=== PATIENT | female | born 1990 | race Caucasian/White ===

== ENCOUNTER 2019-10-02 18:38 | Observation (INO) | payer SELFPAY ==
[2019-10-02] VITALS (11 sets, daily range): BP systolic 100–151; BP diastolic 57–86; PULSE 84–110; RESP 16–23; TEMP 36.2–37; O2SAT 91–95; BMI 43.2; BMI 43.3; BMI 41.9
--- NOTE | 2019-10-02 02:12 | NURSING ---
Pt states she has never had flu or pneumonia shot.
[2019-10-02] MEDS: 0.9% Normal Saline 1,000 ML 125 ML IV ×3 (03:54→18:15)
[2019-10-02 07:31] LABS: Mucous, Urine 0 SEEN /hpf (<or=2+); Red Blood Cells-Urine 0 SEEN /hpf (0-5)
[2019-10-02 07:33] LABS: Color, Urine Yellow (Yellow); Glucose, Dipstick Normal (Normal); Ketone-Dipstick 15 mg/dl (Negative); Leukocyte Esterase-Dipstick 500 /ul (Negative); Nitrite-Dipstick Positive (Negative); Occult Blood-Urine 250 /ul (Negative); Protein-Dipstick 30 mg/dl (Negative); Specific Gravity, Urine 1.015 (1.002-1.030); Urine Bilirubin Dipstick Negative (Negative); Urine Clarity Sl. Cloudy (Clear); Urine Urobilinogen Normal (Normal)
[2019-10-02 07:42] LABS: Bacteria 1+ /hpf (None Seen); Squamous Epithelial Cells - UA 0-5 SEEN /hpf (5-10); White Blood Cells >100 SEEN /hpf (0-5)
[2019-10-02 07:43] LABS: Internal QC Validated? YES +Cl - CLEAR BKGD; Pregnancy, Urine Negative Negative
[2019-10-02 07:46] LABS: Absolute Lymphocyte Count 1.53 X10^3/uL (0.83-4.51); Absolute Neutrophil Count 14.1 X10^3/uL (2.0-7.7); Basophil# 0.06 X10^3/uL; Basophil% 0.4 % (0-1); Eosinophil# 0.08 X10^3/uL; Eosinophils% 0.5 % (0-5); Hematocrit 38.4 % (37-47); Hemoglobin 12.5 g/dL (12.0-15.0); Lymphocyte # 1.53 X10^3/ul (4.0); Mean Corp Hgb Conc 32.6 g/dL (32-36); Mean Corpuscular Volume 95.3 fL (81-99); Mean Platelet Vol. 9.2 fl (6.2-12.0); Monocyte% 6.5 % (0-10); NRBC Flagged by Analyzer 0 % (0-5); Neutrophil # 14.09 X10^3/uL (2.7-7.7); Platelet Count 139 K/mm3 (150-450); RBC Distribution Width CV 13.1 % (11.6-14.6); RBC Distribution Width SD 45.8 fl (35.1-43.9); Red Blood Count 4.03 M/mm3 (4.2-5.4)
--- NOTE | 2019-10-02 08:14 | HP.PCM_ITS ---
History of Present Illness Date of Admission: 10/02/19 Chief Complaint: Obstructing left ureteral calculus and sepsis. The patient is a 29 year old female presented to an outside emergency room with fevers of 102, tachycardic with a heart rate in the 114's, white blood count was elevated at 17, she had mild renal dysfunction. She had severe left flank pain. I was called and accepted the transfer of the patient to our facility for further care. No prior history of kidney stones. She complains of fevers and chills and flank pain to presentation to the emergency room. 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 Denies: Weight Change HEENT: Denies: Head Aches, Sinus Congestion, Sinus Drainage Cardiovascular: Denies: Chest Pain, Palpitations Respiratory: Denies: Cough, Shortness of breath at rest, Sputum production Gastrointestinal: Denies: Abdominal Pain, Nausea, Vomiting Genitourinary: Denies: Dysuria Musculoskeletal: Denies: Joint Pain, Joint Tenderness Skin: Denies: Rash, Wounds Neurological: Denies: Numbness, Tingling, Focal weakness Psychiatric: Denies: Anxiety, Depression, Homicidal Ideations, Suicidal Ideations Hematologic/ Lymphatic: Denies: Easy Bruising, Easy Bleeding VTE Information - Inpt Only VTE Present on Admission: No VTE Mechan Device Prophylaxis: SCD's - Physical Exam Vitals/I&O's: Vital Signs Temp Pulse Resp BP Pulse Ox 98.3 F 101 H 23 H 100/66 95 10/02/19 02:26 10/02/19 02:26 10/02/19 02:26 10/02/19 02:28 10/02/19 02:26 Oxygen Delivery Method Room Air Weight: 121.6 kg Body Mass Index (BMI) 43.2 Intake and Output for Last 24 Hours 09/30/19 10/01/19 10/02/19 23:59 23:59 23:59 Intake Total Balance General: Alert, Oriented x3, Cooperative HEENT: Atraumatic, PERRLA, EOMI, Normocephalic Neck: Supple, No JVD, Negative Carotid Bruits Lungs: Clear to auscultation, Normal air movement Cardiovascular: Regular rate, No murmurs Abdomen: Bowel Sounds Present, Soft, Non Tender Extremities: No edema, Capillary Refill Less than 3 Seconds Skin: No rashes, No breakdown Musculoskeletal: No Tenderness to Palpation of Joints or Extremities Neurological: Cranial nerves II-XII grossly intact Psych/Mental Status: Normal Affect, Appropriate Laboratory Results 10/02/19 02:47: Urine Color Yellow, Urine Clarity Sl. Cloudy, Urine pH 5.0, Ur Specific [place] 1.015, Urine Protein 30 H, Urine Glucose (UA) Normal, Urine Ketones 15 H, Urine Occult Blood 250 H, Urine Nitrite Positive H, Urine Bilirubin Negative, Urine Urobilinogen Normal, Ur Leukocyte Esterase 500 H, Urine RBC 0 SEEN, Urine WBC >100 SEEN, Ur Squamous Epith Cells 0-5 SEEN, Urine Bacteria 1+, Urine Mucus 0 SEEN, Urine Test Negative 10/02/19 07:34: WBC 17.0 H, RBC 4.03 L, Hgb 12.5, Hct 38.4, MCV 95.3, MCH 31.0, MCHC 32.6, RDW Std Deviation 45.8 H, RDW Coeff of Mundo 13.1, Plt Count 139 L, MPV 9.2, Immature Gran % (Auto) 0.600, Neut % (Auto) 83.0 H, Lymph % (Auto) 9.0 L, [place] % (Auto) 6.5, Eos % (Auto) 0.5, Baso % (Auto) 0.4, Absolute Neuts (auto) 14.1 H, Absolute Lymphs (auto) 1.53, Nucleated RBC % 0 10/02/19 07:34: Sodium Pending, Potassium Pending, Chloride Pending, Carbon Dioxide Pending, Anion Gap Pending, BUN Pending, Creatinine Pending, Est GFR (MDRD) Af Amer Pending, Est GFR (MDRD) Non-Af Pending, BUN/Creatinine Ratio Pending, Glucose Pending, Calcium Pending Current Medications Acetaminophen (Tylenol) 500 mg PO Q4H PRN PRN PRN Reason: HEADACHE/FEVER (T>100F) Sodium Chloride () 250 mls @ 15 mls/hr IV .[id number] PRN PRN Reason: Saline Flush Sodium Chloride () 250 mls @ 15 mls/hr IV .[id number] PRN PRN Reason: Additional IVPB Infusion Sodium Chloride () 1,000 mls @ 125 mls/hr IV .Q8H [place] Last Admin: 10/02/19 03:54 Dose: 125 mls/hr Documented by: Ketorolac Tromethamine (Toradol (Bkc)) 15 mg IV Q6H PRN PRN PRN Reason: Pain Score 1-10/10 Stop: 10/07/19 03:03 Metoclopramide HCl (Reglan) 10 mg IV Q6H PRN PRN PRN Reason: NAUSEA/VOMITING Morphine Sulfate () 2 mg IV Q2H PRN PRN PRN Reason: Pain Score 1-10/10 Ondansetron HCl (Zofran) 4 mg IV Q6H PRN PRN PRN Reason: NAUSEA/VOMITING Sodium Chloride () 10 - 40 ml IV UD PRN PRN Reason: SALINE FLUSH Assessment/Plan 29-year-old female presents with obstructing stone in the distal left ureter with hydronephrosis stranding of the kidney on CAT scan from the outside hospital she had an elevated white count of 17, mild renal dysfunction on creatinine slightly elevated, she presented and was given broad-spectrum antibiotics at the outside emergency room with Rocephin. N.p.o. for surgery. We will take her to surgery today and place a stent on the left side. After the placement of stent the patient is clinically stable we will discharge her home with antibiotics.
--- NOTE | 2019-10-02 08:23 | DCINST_ITS ---
Discharge Diet: Light diet - advance as tolerated Discharge Activity: Return to Normal Activity Call your doctor if your incision/area has: Continuous Slow Oozing, Sudden Increased Bleeding Call your doctor if you observe: Fever of 101 or Higher Instructions: Ureteral Stents, Preventing Kidney Stones Allergies/Adverse Reactions: Allergies amoxicillin Allergy (Verified 10/02/19 02:11) Hives Medications to take at Discharge Ciprofloxacin [Cipro] 500 mg PO BID #14 tab 10/02/19 Hydrocodone/Acetaminophen [[place] 5-325 Tablet] 1 each PO Q4H PRN PRN 5 Days #14 tablet 10/02/19 The following prescriptions were given: Ciprofloxacin [Cipro] 500 mg PO BID #14 tab Transmission Status: Pending to [id number] Hydrocodone/Acetaminophen [[place] 5-325 Tablet] 1 each PO Q4H PRN PRN 5 Days #14 tablet PRN Reason: Pain Score 1-10/10 Transmission Status[facility] Test Results: Test results from this visit will be discussed in further detail at your follow- up appointment, if applicable. Please Follow Up With: James Alarcon MD When: in 1 week, please call to make an appointment.
[2019-10-02 08:32] LABS: Anion Gap 6 (5-15); BUN 19 mg/dL (7-18); BUN/Creat Ratio 16.8 RATIO (10-20); Calcium,Total 8.2 mg/dL (8.5-10.1); Chloride 108 mmol/L (98-107); Creatinine, Serum 1.13 mg/dL (0.55-1.02); EST Glomerular Filtration Rate 61 mL/min (>60); Est Glom Filt Rate - Afr Amer 74 mL/min (>60); Estimated Creatinine Clearance 70.01 ml/min; Glucose 117 mg/dL (74-106); Potassium 3.7 mmol/L (3.5-5.1); Sodium Level 140 mmol/L (136-145)
[2019-10-02] MEDS: Lidocaine Jelly 2% 20 ML Syringe (URO-JET) 20 APPLIC (08:35)
[2019-10-02] MEDS: Lubricating Jelly 60 GM Tube 30 GM TOPICAL (08:35)
--- NOTE | 2019-10-02 08:45 | OP.PCM_ITS ---
Report of Operation Date of Procedure: 10/02/19 Pre-Operative Diagnosis: Left ureteral calculi and sepsis. Post-Operative Diagnosis: Same Surgery/Procedure Performed:: Cystoscopy and left stent placement Description of Surgical Findings:: 29-year-old female taken back to the operating room after smooth induction of anesthesia she was placed in dorsolithotomy position the urethra vaginal area prepped and draped in usual sterile fashion, we infiltrated the urethra with lidocaine jelly, went to the bladder with a 21 [place] rigid cystourethroscope, identified the left ureteral orifice and then cannulated the left ureter orifice with a Glidewire advanced a wire under fluoroscopy could see the stone in the distal ureter on the left side once the wire was in place then over the wire advanced a 6 [place] by 26 cm stent. Once stent was a good position and pulled the wire the stent: The kidney bladder good position I drained the bladder and the patient acetic was reversed should be kept in the hospital because of her infection. Type of Anesthesia:: Local MAC Drains: stent 6 fr x 26 cm - Admit VTE Documentation VTE Present on Admission: No VTE Mechan Device Prophylaxis: SCD's
[2019-10-02] MEDS: Lactated Ringers 1,000 ML 100 ML IV (09:07)
[2019-10-02] MEDS: Ceftriaxone 1 GM/50 ML BAG IV ×2 (11:43→21:41)
[2019-10-03] MEDS: 0.9% Normal Saline 1,000 ML 125 ML IV (02:43)
[2019-10-03 03:39] VITALS: BP 135/80; PULSE 83; RESP 18; TEMP 36.7; O2SAT 97
[2019-10-03 05:18] LABS: Absolute Lymphocyte Count 1.86 X10^3/uL (0.83-4.51); Absolute Neutrophil Count 14.4 X10^3/uL (2.0-7.7); Basophil# 0.04 X10^3/uL; Basophil% 0.2 % (0-1); Eosinophil# 0.04 X10^3/uL; Eosinophils% 0.2 % (0-5); Hematocrit 35.8 % (37-47); Hemoglobin 11.7 g/dL (12.0-15.0); Lymphocyte # 1.86 X10^3/ul (4.0); Lymphocyte % 10.3 % (19-41); Mean Corp Hgb Conc 32.7 g/dL (32-36); Mean Corpuscular Hgb 30.7 pg (27.0-32.0); Mean Platelet Vol. 10.1 fl (6.2-12.0); Monocyte% 7.8 % (0-10); NRBC Flagged by Analyzer 0 % (0-5); Neutrophil # 14.37 X10^3/uL (2.7-7.7); Neutrophil % 79.6 % (47-70); Platelet Count 123 K/mm3 (150-450); RBC Distribution Width CV 12.8 % (11.6-14.6); Red Blood Count 3.81 M/mm3 (4.2-5.4); White Blood Count 18.1 K/mm3 (4.4-11.0)
[2019-10-03 05:36] LABS: Anion Gap 6 (5-15); BUN 17 mg/dL (7-18); BUN/Creat Ratio 20.2 RATIO (10-20); Calcium,Total 8.7 mg/dL (8.5-10.1); Chloride 111 mmol/L (98-107); Creatinine, Serum 0.84 mg/dL (0.55-1.02); EST Glomerular Filtration Rate 86 mL/min (>60); Est Glom Filt Rate - Afr Amer 104 mL/min (>60); Estimated Creatinine Clearance 94.18 ml/min; Glucose 123 mg/dL (74-106); Potassium 4.1 mmol/L (3.5-5.1); Sodium Level 142 mmol/L (136-145)
--- NOTE | 2019-10-03 07:53 | DS.PCM_ITS ---
Discharge Date and Diagnosis Date of Admission: 10/02/19 Date of Discharge: 10/03/19 Hospital Course and Treatment Operations: - - Cystoscopy and left stent placement Procedures: None Summary of Care Provided: The patient is a 29 year old female who presented with sepsis with an obstructing stone distal left ureter she underwent cystoscopy and stent placement her fever curve resolved she is feeling better tolerating regular diet no nausea or vomiting pain is under control will discharge home today. - Physical Exam Vitals/I&O's: Vital Signs Temp Pulse Resp BP Pulse Ox 98.0 F 83 18 135/80 H 97 10/03/19 03:39 10/03/19 03:39 10/03/19 03:39 10/03/19 03:39 10/03/19 03:39 Oxygen Flow Rate (L/min) 2 Oxygen Delivery Method Room Air Weight: 117.934 kg Body Mass Index (BMI) 41.9 Intake and Output for Last 24 Hours 10/01/19 10/02/19 10/03/19 23:59 23:59 23:59 Intake Total 4191.25 / 4691.25 1308.33 / 1308.33 Output Total 1000 / 1000 Balance 3191.25 / 3691.25 1308.33 / 1308.33 General: Alert, Oriented x3, Cooperative HEENT: Atraumatic, PERRLA, EOMI, Normocephalic Neck: Supple, No JVD, Negative Carotid Bruits Lungs: Clear to auscultation, Normal air movement Cardiovascular: Regular rate, No murmurs Abdomen: Bowel Sounds Present, Soft, Non Tender Extremities: No edema, Capillary Refill Less than 3 Seconds Skin: No rashes, No breakdown Musculoskeletal: No Tenderness to Palpation of Joints or Extremities Neurological: Cranial nerves II-XII grossly intact Psych/Mental Status: Normal Affect, Appropriate Laboratory Results 10/02/19 07:34: Sodium 140, Potassium 3.7, Chloride 108 H, Carbon Dioxide 26.0, Anion Gap 6, BUN 19 H, Creatinine 1.13 H, Estim Creat Clear Calc 70.01, Est GFR (MDRD) Af Amer 74, Est GFR (MDRD) Non-Af 61, BUN/Creatinine Ratio 16.8, Glucose 117 H, Calcium 8.2 L 10/03/19 04:55: WBC 18.1 H, RBC 3.81 L, Hgb 11.7 L, Hct 35.8 L, MCV 94.0, MCH 30.7, MCHC 32.7, RDW Std Deviation 44.0 H, RDW Coeff of [place] 12.8, Plt Count 123 L, MPV 10.1, Immature Gran % (Auto) 1.900 H, Neut % (Auto) 79.6 H, Lymph % (Auto) 10.3 L, [place] % (Auto) 7.8, Eos % (Auto) 0.2, Baso % (Auto) 0.2, Absolute Neuts (auto) 14.4 H, Absolute Lymphs (auto) 1.86, Nucleated RBC % 0 10/03/19 04:55: Sodium 142, Potassium 4.1, Chloride 111 H, Carbon Dioxide 25.0, Anion Gap 6, BUN 17, Creatinine 0.84, Estim Creat Clear Calc 94.18, Est GFR (MDRD) Af Amer 104, Est GFR (MDRD) Non-Af 86, BUN/Creatinine Ratio 20.2 H, Glucose 123 H, Calcium 8.7 Current Medications Acetaminophen (Tylenol) 500 mg PO Q4H PRN PRN PRN Reason: HEADACHE/FEVER (T>100F) Sodium Chloride () 250 mls @ 15 mls/hr IV .[id number] PRN PRN Reason: Saline Flush Sodium Chloride () 250 mls @ 15 mls/hr IV .[id number] PRN PRN Reason: Additional IVPB Infusion Sodium Chloride () 1,000 mls @ 125 mls/hr IV .Q8H [facility] Last Admin: 10/03/19 02:43 Dose: 125 mls/hr Documented by: Ceftriaxone Sodium (Rocephin) 1 gm in 50 mls @ 100 mls/hr IV Q12 [facility] Last Infusion: 10/02/19 22:11 Dose: Infused Documented by: Ketorolac Tromethamine (Toradol (Bkc)) 15 mg IV Q6H PRN PRN PRN Reason: Pain Score 1-10/10 Stop: 10/07/19 03:03 Metoclopramide HCl (Reglan) 10 mg IV Q6H PRN PRN PRN Reason: NAUSEA/VOMITING Morphine Sulfate () 2 mg IV Q2H PRN PRN PRN Reason: Pain Score 1-10/10 Nutritional Formula (Lactose Free) (Ensure Enlive) 120 ml PO 4X/DAY [place] Ondansetron HCl (Zofran) 4 mg IV Q6H PRN PRN PRN Reason: NAUSEA/VOMITING Sodium Chloride () 10 - 40 ml IV UD PRN PRN Reason: SALINE FLUSH Discharge Diet: Light diet - advance as tolerated Discharge Activity: Return to Normal Activity Call your doctor if your incision/area has: Continuous Slow Oozing, Sudden Increased Bleeding Call your doctor if you observe: Fever of 101 or Higher Home Medications: Medications to take at Discharge Ciprofloxacin [Cipro] 500 mg PO BID #14 tab 10/02/19 Hydrocodone/Acetaminophen [[place] 5-325 Tablet] 1 ea PO Q4H PRN PRN 5 Days #14 tab 10/02/19 Bad tablePlease Follow Up With: James Alarcon MD When: in 1 week, please call to make an appointment. Patient Instructions: Ureteral Stents, Preventing Kidney Stones Medical Necessity - Tobacco Use Smoking Status: Never smoker Tobacco Use: Non-smoker Meaningful Use Info Meaningful Use Diagnoses (Choose all that apply): None applicable
[2019-10-03 08:23] VITALS: BP 134/78; PULSE 92; RESP 18; TEMP 37.1; O2SAT 96
[2019-10-03 08:51] VITALS: BP 134/78; PULSE 92; RESP 18; TEMP 37.1; O2SAT 96
== END 2019-10-03 07:52 | disposition home or self-care (01) ==
PROVIDERS: Anesthesiology; Admitting Provider Urology; Referring Provider Urology; Visit Provider Urology
PROC: (CPT 52332; principal; 2019-10-02 08:15)
DX: N13.2 Hydronephrosis with renal and ureteral calculous obstruction (principal); E66.01 Morbid (severe) obesity due to excess calories; Z68.41 Body mass index [BMI] 40.0-44.9, adult; Z71.3 Dietary counseling and surveillance
CPT/HCPCS: 00910; 52332; 36415; 76000; 80048; 81001; 81025; 85025; 96361; 96365; 96366; 97802; 99218; J7030; J7120; C1769; C2617; G0378; G0379; J2405

== ENCOUNTER → 2019-10-11 08:13 | Outpatient (CLI) | payer SELFPAY ==
[2019-10-02 08:17] VITALS: BMI 41.9
--- NOTE | 2019-10-11 08:31 | RAD_ITS ---
STUDY: X-RAY - ABDOMEN/PELVIS REASON FOR EXAM: Female, 29 years old. CALCULUS OF LEFT KIDNEY; -- RECENT STENT TECHNIQUE: Single AP view of the abdomen / pelvis. COMPARISON: None. FINDINGS: Normal visualized lung bases. There is an unremarkable bowel gas pattern. Left ureteral stent. No obvious ureteral stone. Normal soft tissue structures. Normal visualized osseous structures. RAD/Abdomen Single View IMPRESSION: Left ureteral stent. No obvious ureteral stone. Electronically Signed: Arsh Andersen MD at 12:48 EST Tel , Service support ,
== END ==
PROVIDERS: PCP Nurse Practitioner; Referring Provider Urology; Visit Provider Urology
DX: Z96.0 Presence of urogenital implants (principal)
CPT/HCPCS: 74018